=== PATIENT | male | born 1985 | race African-American/Black ===

== ENCOUNTER → 2020-12-26 | Outpatient (CLI) | payer BC ==
[~2020-12-26] MED LIST: IBUPROFEN 600600 M1 PO; NORCO 5-325 TA1 EACH PO; VALIUM5 MG PO; ZANTAC 150MG T150 M1 PO; ZOFRAN ODT4 MG PO
== END ==
LOC: ULTRA 08:00
PROVIDERS: ATTEND Family Medicine
DX: E01.0 Iodine-deficiency related diffuse (endemic) goiter (principal); E05.90 Thyrotoxicosis, unspecified without thyrotoxic crisis or storm